=== PATIENT | male | born 1960 | race Two or more races ===

== ENCOUNTER 2023-11-19 10:56 | Emergency (ER) | payer OTHER ==
[2023-11-19 11:12] VITALS: BP 133/84; PULSE 69; RESP 16; TEMP 98.4; BMI 27.7
[2023-11-19] MEDS ORDERED: KETOROLAC TROMETHAMINE 15 MG/ML VIAL ONE (12:39)
[2023-11-19] MEDS: KETOROLAC TROMETHAMINE 15 MG/ML VIAL IM ONE (12:51)
== END 2023-11-19 13:15 | disposition home or self-care (01) ==
LOC: JERFT 10:56
PROC: 3E0133Z Introduction of Anti-inflammatory into Subcutaneous Tissue, Percutaneous Approach (ICD-10-PCS; principal; 2023-11-19)
DX: S83.91XA Sprain of unspecified site of right knee, initial encounter (principal); Y30.XXXA Falling, jumping or pushed from a high place, undetermined intent, initial encounter; Y99.0 Civilian activity done for income or pay
CPT/HCPCS: 73562-TC-RT-FY; 99284-25